=== PATIENT | male | born 1995 | race Caucasian/White ===

== ENCOUNTER → 2018-06-27 09:14 | Emergency (ER) | payer BC, OTHER ==
[2018-06-27 09:22] VITALS: BP 151/95
--- NOTE | 2018-06-27 09:35 | ED ---
Throat Pain/Nasal Congestion - HPI Summary HPI Summary: 22 year old male presents to the emergency department for evaluation of a "swollen lymph node" on his left anterior neck. This problem has been present since 06/11/18 and is constant. Pt reports having a sore throat with the onset of his symptoms which is now resolved. He denies any fever, chills, cough, congestion, N/V, diarrhea, abdominal pain, SOB, chest pain, myalgia, and any sick contacts. Pt had a similar problem a year and a half ago on his left axilla which was treated with oral prednisone. - History of Current Complaint Chief Complaint: EDThroatPain Time Seen by Provider: 06/27/18 09:23 Hx Obtained From: Patient - Allergies/Home Medications Allergies/Adverse Reactions: Allergies Allergy/AdvReac Type Severity Reaction Status Date / Time No Known Allergies Allergy Verified 06/27/18 09:18 Home Medications: Home Medications NK [No Home Medications Reported] 06/27/18 [History Confirmed 06/27/18] PMH/Surg Hx/FS Hx/Imm Hx Previously Healthy: Yes Respiratory History: Reports: Hx Asthma - Exercise-induced asthma in ~ 6 years ago. Well controlled., Hx Pneumonia - December 2014, Other Respiratory Problems/Disorders - HX OF PNEUMONIA Infectious Disease History: No Infectious Disease History: Reports: Traveled Outside the [place] in Last 30 Days - [place] - Family History Known Family History: Positive: None Family History: R & N/C - Social History Occupation: Student Alcohol Use: None Hx Substance Use: No Substance Use Type: Reports: None Hx Tobacco Use: No Smoking Status (MU): Never Smoked Tobacco Review of Systems Constitutional: Negative Negative: Fever, Chills, Fatigue Positive: Sore Throat - with onset of symptoms, resolved now. Negative: Ear Ache, Nasal Discharge Cardiovascular: Negative Negative: Chest Pain Respiratory: Negative Negative: Shortness Of Breath, Cough Gastrointestinal: Negative Negative: Abdominal Pain, Vomiting, Diarrhea, Nausea Skin: Negative Negative: Rash Neurological: Negative Negative: Headache, Weakness All Other Systems Reviewed And Are Negative: Yes Physical Exam Triage Information Reviewed: Yes Vital Signs On Initial Exam: Initial Vitals Temp Pulse Resp BP Pulse Ox 98.3 F 82 14 151/95 97 06/27/18 09:18 06/27/18 09:18 06/27/18 09:18 06/27/18 09:18 06/27/18 09:18 Vital Signs Reviewed: Yes Appearance: Positive: Well-Appearing, No Pain Distress, Well-Nourished Skin: Positive: Warm, Skin Color Reflects Adequate Perfusion, Dry Head/Face: Positive: Normal Head/Face Inspection Eyes: Positive: Normal, EOMI, SANDRA, Conjunctiva Clear ENT: Positive: Normal ENT inspection, Hearing grossly normal, Pharyngeal erythema, TMs normal, Uvula midline Neck: Positive: Supple, Enlarged Nodes @ - 2.5 cm firm, tender node left anterior cervical Respiratory/Lung Sounds: Positive: Clear to Auscultation, Breath Sounds Present Cardiovascular: Positive: Normal, RRR, Pulses are Symmetrical in both Upper and Lower Extremities Abdomen Description: Positive: Nontender Musculoskeletal: Positive: Normal, Strength/ROM Intact Neurological: Positive: Normal, Sensory/Motor Intact, Alert, Oriented to Person Place, Time, Facial Symmetry, Speech Normal Psychiatric: Positive: Normal, Affect/Mood Appropriate Diagnostics - Vital Signs Vital Signs Temp Pulse Resp BP Pulse Ox 06/27/18 09:18 98.3 F 82 14 151/95 97 - Laboratory Result Diagrams: 06/27/18 09:37 06/27/18 09:37 Lab Statement: Any lab studies that have been ordered have been reviewed, and results considered in the medical decision making process. EENT Course/Dx - Course Course Of Treatment: Pt presents with left anterior cervical lymphadenopathy for 2 weeks. He reports having a sore throat at onset of symptoms which has since resolved. Pt denies any fever, chills, N/V, diarrhea, abdominal pain, SOB , and chest pain. His exam reveals a firm tender nodule on the left anterior cervical neck. CBC, CMP, and monospot were unremarkable. Pt prescribed oral decadron to help with the swelling. Advised to use OTC ibuprofen/tylenol as needed for pain and follow up with PCP. Assessment/Plan: I saw this patient conjunction with the PA student. The above history and physical and medical decision-making represents my work. The patient has tender lymphadenopathy mostly on the left side. He has slight WBC elevation but normal differential and nonreactive Monospot. He will follow-up with [facility] in 1 week for reevaluation of the nodule and repeat blood work. - Differential Diagnoses Differential Diagnoses: Pharyngitis, Tonsilitis, Other - Peritonsillar abscess, lymphoma - Diagnoses Provider Diagnoses: Cervical lymphadenopathy Discharge - Sign-Out/Discharge Documenting (check all that apply): Patient Departure Patient Received Moderate/Deep Sedation with Procedure: No - Discharge Plan Condition: Improved Disposition: HOME Patient Education Materials: Lymphadenopathy (ED) Referrals: [facility] [Provider Group] Additional Instructions: Tylenol, ibuprofen as needed for discomfort. Steroids are prescribed and in the pharmacy. Follow-up with [facility] for repeat blood work and reevaluation within 1 week. Return if worse or other concerns. - Billing Disposition and Condition Condition: IMPROVED Disposition: Home - Attestation Statements Document Initiated by Cathy: No
[2018-06-27 09:48] LABS: ABS Basophils 0 10^3/ul (0-0.2); ABS Eosinophils 0.3 10^3/ul (0-0.6); ABS Lymphocytes 1.8 10^3/ul (1.0-4.8); ABS Monocytes 1.1 10^3/ul (0-0.8); ABS Neutrophils 8.4 10^3/ul (1.5-7.7); ABS Nucleated RBC 0 10^3/ul; Eosinophil % 2.2 %; Hematocrit 44 % (36-46); Lymphocyte % 15.4 %; Mean Corpuscular HGB Conc 35 g/dL (31-36); Mean Corpuscular Hemoglobin 30 pg (27-31); Mean Corpuscular Volume 87 fL (80-94); Mean Platelet Volume 7.4 fL (7.4-10.4); Nucleated Red Blood Cells % 0; Platelet Count 256 10^3/uL (150-450); Red Cell Distribution Width 13 % (10.5-15); White Blood Count 11.6 10^3/uL (3.5-10.8)
[2018-06-27 10:00] LABS: Albumin 4.3 g/dL (3.2-5.2); Albumin/Globulin Ratio 1.3 (1-3); BUN/Creatinine Ratio 11.1 (8-20); C Reactive Protein 4.89 mg/L (<8.01); Calcium 9.4 mg/dL (8.6-10.3); EGFR African American 102.5 (>60); EGFR Non-African American 84.7 (>60); Globulin 3.2 g/dL (2-4); Potassium 4.4 mmol/L (3.5-5.0); Total Bilirubin 0.4 mg/dL (0.2-1.0); Total Protein 7.5 g/dL (6.4-8.9)
== END | disposition home or self-care (01) ==
LOC: ED 09:14
DX: R59.1 Generalized enlarged lymph nodes (principal)
CPT/HCPCS: 36415; 80053; 85025; 86140; 86308; 99282